=== PATIENT | female | born 1970 | race Caucasian/White ===

== ENCOUNTER 2024-01-16 20:35 | Emergency (ER) | payer BC, SELFPAY ==
[2024-01-16 20:36] VITALS: BP 151/82; PULSE 73; RESP 16; TEMP 36.8; O2SAT 96; BMI 38.7
--- NOTE | 2024-01-16 20:45 | RAD_ITS ---
STUDY: X-RAY - UNILATERAL RIBS ( LEFT ) WITH CHEST REASON FOR EXAM: Female, 53 years old. PAIN TECHNIQUE - RIBS: 4 view(s) of the ribs. TECHNIQUE - CHEST: Single frontal view of the chest. COMPARISON: None. FINDINGS - RIBS: Normal visualized ribs without a demonstrated fracture. FINDINGS - CHEST: Subsegmental atelectasis on the left. The lungs are clear and expanded. There is no demonstrated pleural abnormality. Normal size heart. Normal mediastinum and tricia. Normal visualized pulmonary arteries. Normal visualized aortic arch and descending thoracic aorta. Normal visualized thoracic spine. Normal visualized ribs, clavicles, and shoulders. There is no demonstrated abnormality of the visualized soft tissue structures of the upper abdomen. RAD/Ribs Uni Min 3V w/PA Chest IMPRESSION: RIBS: Subsegmental atelectasis in the left. No pneumothorax. No rib fracture noted. CHEST: Normal x-ray examination of the chest. Electronically Signed: Brandon Sher MD at 22:16 EDT ,
--- NOTE | 2024-01-16 22:17 | EKG12_ITS ---
Test Reason : CHEST OTHER Blood Pressure : / mmHG Vent. Rate : 071 BPM Atrial Rate : 071 BPM P-R Int : 132 ms QRS Dur : 082 ms QT Int : 388 ms P-R-T Axes : 010 021 016 degrees QTc Int : 421 ms Normal sinus rhythm Normal ECG Confirmed by Frank West ([id number]), newspaper managing editor RELL SWANN ([id number]) on 01/19/2024 2:21:34 PM Referred By: GAETANO Confirmed By:Frank West
--- NOTE | 2024-01-16 22:18 | EDS_ITS ---
HPI History of Present Illness Chief Complaint: Chest Other Narrative Narrative: 53-year-old female past medical history of type 2 diabetes on Mounjaro, had recent biopsies of her breasts, presents from urgent care with left-sided chest pain that she has had since 1230 this afternoon, almost 10 hours ago. It has been constant. She denies any nausea or vomiting, no diaphoresis or shortness of breath. She states it is more tender when she presses in 2 spots on her left chest wall. Does not really have a pleuritic component to it. She states she would have to breathe really deep in order to make it hurt. She states she also takes estrogen and progesterone. She states that at the urgent care, they were concerned because of her recent breast biopsies, and had mention risk of blood clots. [facility] Medical History Type 2 diabetes mellitus Allergy/AdvReac Type Severity Reaction Status Date / Time No Known Allergies Allergy Verified 01/16/24 20:40 Surgical History History of cholecystectomy History of surgery on lower extremity Social History Smoking Status: Former smoker ROS ROS ED ROS Narrative Constitutional: No fever, no chills. HEENT: No sore throat. No neck pain. No loss of vision. No rhinorrhea. Cardiovascular: Left-sided chest pain. No palpitations. No pedal edema. Respiratory: No cough, no shortness of breath. Abdominal: No abdominal pain. No nausea. No vomiting. Genitourinary: No dysuria. No hematuria. Musculoskeletal: No myalgias. No arthralgias. Neurologic: No headaches. No dizziness. No lightheadedness. Skin: No rash. No change in color. Psychiatric: No depression. No anxiety. EXAM Physical Exam Narrative Exam Narrative: Afebrile. Vital signs noted. HEENT: Normocephalic. Atraumatic. PERRL, EOMI. Neck soft and supple. No point tenderness or step off. Cardiovascular: Regular rate and rhythm. No murmurs, rubs, or gallops appreciated. Mild tenderness to palpation left chest wall, more anteriorly and slightly posteriorly. No crepitance. Respiratory: No tachypnea. Lungs clear to auscultation bilaterally. Gastrointestinal: Abdomen soft, nontender, with normoactive bowel sounds. No rebound or guarding. Neurological: Awake. Alert. Nonfocal, nonlateralizing. Skin: No rash. Normal color. No pallor. Musculoskeletal: No pedal edema. Full range of motion extremities. Const Vital Signs: 01/16/24 20:36 01/16/24 21:39 01/16/24 22:28 Temperature 98.3 F Temperature Source Temporal Pulse Rate 73 Respiratory Rate 16 Respiratory Effort Normal Non-Labored Blood Pressure 151/82 H Blood Pressure Mean 105 Pulse Ox 96 Oxygen Delivery Method Room Air Room Air 01/16/24 22:35 Temperature Temperature Source Pulse Rate 71 Respiratory Rate 17 Respiratory Effort Blood Pressure 148/77 H Blood Pressure Mean 100 Pulse Ox 96 Oxygen Delivery Method Room Air MDM MDM MDM Narrative Medical decision making narrative: In the differential diagnosis is ACS versus pulmonary embolism versus rib fracture. I have low suspicion for rib fracture because she has not had any trauma. She does have risk for her for pulmonary embolism including her use of estrogen and progesterone. I feel that perhaps urgent care was concerned that s nataliia she had breast biopsies that she may have carcinoma, increasing her risk for pulmonary embolism. She has had constant pain without other symptoms so I have low suspicion for ACS, and I do not feel she needs serial troponins and that 1 troponin could help rule her out. RN ordered x-rays of the chest and ribs which were interpreted by myself independently and I see no evidence of pneumothorax or pneumonia, no fractured rib. I reviewed the radiology report which confirms my independent interpretation. I do feel that she should get basic laboratory work, EKG, and a D-dimer to help rule out pulmonary embolism as well. EKG obtained and interpreted by myself independently as normal sinus rhythm at 71 bpm without ectopy or acute ST changes. No STEMI. I reviewed her laboratory work and she has a normal white count of 10.4, hemoglobin normal at 14.3, hematocrit 43.6, platelet count normal at 370. D-dimer is less than 0.27 so I do not feel she has a pulmonary embolism. Review of her electrolyte panel is grossly unremarkable. Normal BUN and normal creatinine. High-sensitivity troponin is 4. Once again, this is a 6-hour troponin she has had constant pain so I do not feel that she needs a second enzyme. She will take [id number] analgesics and I do not feel narcotics are indicated. She will follow-up with her primary care provider. Return instructions to the emergency department were reviewed. Patient and spouse are agreeable to the plan. Disposition is discharged home in stable condition. History & Record Review Discussion w/independent historian: Patient Additional record(s) reviewed:: No prior records Lab Data Attestation: I reviewed the patient's lab results. Labs: Laboratory Results - last 24 hr 01/16/24 22:25 WBC 10.4 RBC 4.96 Hgb 14.3 Hct 43.6 MCV 87.9 MCH 28.8 MCHC 32.8 RDW Std Deviation 41.3 RDW Coeff of [place]int[place] 12.9 Plt Count 370 MPV 9.9 Immature Gran % (Auto) 0.700 Neut % (Auto) 59.2 Lymph % (Auto) 31.3 [place] % (Auto) 6.5 Eos % (Auto) 1.3 Baso % (Auto) 1.0 Absolute Neuts (auto) 6.2 Absolute Lymphs (auto) 3.25 Nucleated RBC % 0 D-Dimer Quant (PE/DVT) < 0.27 L Sodium 137 Potassium 3.8 Chloride 104 Carbon Dioxide 26.0 Anion Gap 7 BUN 14 Creatinine 0.64 Estim Creat Clear Calc 109.97 Est GFR (MDRD) Af Amer 125 Est GFR (MDRD) Non-Af 103 BUN/Creatinine Ratio 21.9 H Glucose 85 Calcium 9.3 Troponin I High Sens 4 Radiography Diagnostic Testing: Clinical Impression(s) from Imaging Studies Ribs w/Chest X-Ray 01/16/24 20:45 IMPRESSION: RIBS: Subsegmental atelectasis in the left. No pneumothorax. No rib fracture noted. CHEST: Normal x-ray examination of the chest. Electronically Signed: Brandon Sher MD at 22:16 EDT , Discharge Plan Triage Chief Complaint: Chest Other ED Provider: Jarvis Bland Dx/Rx/DC Orders Clinical Impression: Atelectasis, Chest pain Instructions: ED Atelectasis, ED Chest Pain, Uncertain Cause Primary Care Provider: Savage Khan Referrals: Savage Khan MD [Primary Care Provider] - 3-5 Days Activity Restrictions/Additional Instructions: He had negative workup here today. Take Tylenol as needed for pain. Follow-up with your primary care provider early next week. Return with increased pain, new or worsening symptoms. Disposition Disposition: Home, Self Care
[2024-01-16 22:35] VITALS: BP 148/77; PULSE 71; RESP 17; O2SAT 96
[2024-01-16 22:45] LABS: Absolute Lymphocyte Count 3.25 X10^3/uL (0.83-4.51); Absolute Neutrophil Count 6.2 X10^3/uL (2.0-7.7); Eosinophil# 0.13 X10^3/uL; Eosinophils% 1.3 % (0-5); Hematocrit 43.6 % (37-47); Hemoglobin 14.3 g/dL (12.0-15.0); Lymphocyte # 3.25 X10^3/ul (0.83-4.51); Lymphocyte % 31.3 % (19-41); Mean Corp Hgb Conc 32.8 g/dL (32-36); Mean Corpuscular Hgb 28.8 pg (27.0-32.0); Mean Corpuscular Volume 87.9 fL (81-99); Mean Platelet Vol. 9.9 fl (6.2-12.0); Monocyte# 0.67 X10^3/uL; Monocyte% 6.5 % (0-10); NRBC Flagged by Analyzer 0 % (0-5); Neutrophil # 6.15 X10^3/uL (2.7-7.7); Neutrophil % 59.2 % (47-70); Platelet Count 370 K/mm3 (150-450); RBC Distribution Width CV 12.9 % (11.6-14.6); RBC Distribution Width SD 41.3 fl (35.1-43.9); Red Blood Count 4.96 M/mm3 (4.2-5.4); White Blood Count 10.4 K/mm3 (4.4-11.0)
[2024-01-16 23:01] LABS: D-Dimer Quantitative (DVT/PE) < 0.27 FEU/ug/m (0.27-0.49)
[2024-01-16 23:17] LABS: Anion Gap 7 (5-15); BUN 14 mg/dL (7-18); BUN/Creat Ratio 21.9 RATIO (10-20); Calcium,Total 9.3 mg/dL (8.5-10.1); Chloride 104 mmol/L (98-107); Creatinine, Serum 0.64 mg/dL (0.55-1.02); EST Glomerular Filtration Rate 103 mL/min (>60); Est Glom Filt Rate - Afr Amer 125 mL/min (>60); Estimated Creatinine Clearance 109.97 ml/min; Glucose 85 mg/dL (74-106); Potassium 3.8 mmol/L (3.5-5.1); Sodium Level 137 mmol/L (136-145); Troponin-I HS (w/2H Reflex) 4 pg/mL (3.0-54.0)
[2024-01-16 23:50] VITALS: BP 124/72; PULSE 71; RESP 18; TEMP 36.4; O2SAT 94
[2024-01-16] MEDS: Acetaminophen 325 MG Tablet 650 MG PO (23:51)
[2024-01-17 00:30] LABS: Reflex Troponin-HS? (from REC) Y
== END 2024-01-16 23:53 | disposition home or self-care (01) ==
PROVIDERS: Emergency Provider Emergency Medicine; PCP Family Medicine; Visit Provider Emergency Medicine
DX: R07.9 Chest pain, unspecified (principal); E11.9 Type 2 diabetes mellitus without complications; J98.11 Atelectasis; Z87.891 Personal history of nicotine dependence; Z90.49 Acquired absence of other specified parts of digestive tract; Z79.85 Long-term (current) use of injectable non-insulin antidiabetic drugs
CPT/HCPCS: 71101; 80048; 84484; 85025; 85379; 93005; 99284; A4216

== ENCOUNTER 2025-02-10 14:48 | Emergency (ER) | payer BC, SELFPAY ==
[2025-02-10 14:49] VITALS: BP 133/75; PULSE 82; RESP 18; TEMP 36.9; O2SAT 98; BMI 38.5
[2025-02-10 17:54] VITALS: BP 124/75; PULSE 69; RESP 18; O2SAT 96
--- NOTE | 2025-02-10 18:10 | EDS_ITS ---
HPI HPI - GI History of Present Illness Chief Complaint: Constipation Narrative Narrative: 54-year-old female past medical history of type 2 diabetes controlled with diet and exercise is status post partial hysterectomy by Dr. Paul at [facility] on 02/04/2025, approximately 6 days ago. She was told that if she does not have a bowel movement that she needed to come to the emergency department. She states she also had pelvic floor reconstruction surgery. She has been taking MiraLAX, Senokot, Gas-X, and is cutting down on her opiate use. She is nauseated but has not vomited. No fevers or chills, no dysuria or hematuria. She states that she called the GROUP COUNSELOR and urogynecologist, and was told that she needed to come to the emergency department for evaluation since she has not had a bowel movement. She states she has had decreased flatulence as well. Past surgical history prior to this did not include cholecystectomy. [facility] Medical History Pelvic prolapse Type 2 diabetes mellitus Home Medications ?Medication ?Instructions ?Recorded ?Last Taken ?Type atomoxetine 10 mg capsule 10 mg PO 02/10/25 Unknown Hi story ibuprofen 600 mg tablet mg PO 02/10/25 Unknown Histo ry oxycodone-acetaminophen 5 mg-325 1 tab PO Q6H PRN PRN moderate pain 02/10/25 Unknown History mg tablet tirzepatide 7.5 mg/0.5 mL 7.5 mg subcut QWEEK 02/10/25 Unknown History subcutaneous pen injector (Mounjaro) Allergy/AdvReac Type Severity Reaction Status Date / Time No Known Allergies Allergy Verified 02/10/25 14:51 Surgical History History of hysterectomy History of cholecystectomy History of surgery on lower extremity Social History Smoking Status: Former smoker ROS ROS ED ROS Narrative Review of systems positive for constipation, no bowel movement for 6 days. Mild pelvic/abdominal pain status post pelvic floor surgery/partial hysterectomy. Positive nausea but no vomiting. No fevers or chills. No exacerbating or alleviating factors. EXAM Physical Exam Narrative Exam Narrative: Afebrile. Vital signs noted. Nontoxic-appearing. Cardiovascular examination reveals a regular rate and rhythm. Lungs are clear to auscultation bilaterally. Abdomen is soft, nontender without guarding or rebound. Positive bowel sounds. Neurological examination nonfocal, nonlateralizing. Const Vital Signs: 02/10/25 14:49 02/10/25 17:54 02/10/25 19:00 Temperature 98.4 F Temperature Source Oral Pulse Rate 82 69 78 Respiratory Rate 18 18 16 Blood Pressure 133/75 H 124/75 H 136/78 H Blood Pressure Mean 94 91 97 Pulse Ox 98 96 98 Oxygen Delivery Method Room Air Room Air Room Air 02/10/25 21:00 Temperature Temperature Source Pulse Rate 72 Respiratory Rate 18 Blood Pressure 132/74 H Blood Pressure Mean 93 Pulse Ox 98 Oxygen Delivery Method Room Air MDM MDM MDM Narrative Medical decision making narrative: Differential diagnosis includes but not limited to constipation versus ileus versus partial bowel obstruction. Comprehensive workup was pursued. I have low suspicion for pelvic abscess as she is not febrile here and her pain on examination seems appropriate. I do feel CT imaging is indicated. I reviewed her laboratory work and she has slightly elevated white count of 11.4 which I think may be postsurgical. Hemoglobin 14.9 with hematocrit 43.8, platelet count normal at 360. Sodium normal at 137 with potassium 3.9, anion gap 13, glucose 81. ALT is slightly elevated at 51 which I think is nonspecific. Urinalysis shows occult blood of 150 but negative ketones, while there are 25-50 WBCs and 5-10 RBCs are 10-25 squamous epithelial cells and 0 bacteria. I do not feel that antibiotics are indicated. On my review of the CT scan, there is a moderate amount of stool throughout the colon. Feel it is more of a nonobstructive pattern. On repeat examination, patient wanted to take her on ibuprofen to help with her abdominal pain. I do think that she is probably having more gastric motility problems secondary to opiate use. She will be given 30 mg of Toradol intravenously instead of taking her on ibuprofen which was prescribed to her. I reviewed the radiology report of the CT of the abdomen and pelvis which shows no acute process, there is a moderate stool burden. No fecal impaction. I discussed with the patient the utility of digital rectal examination but she declined. Instead she opted for an enema. I did order a soapsuds enema. However I was told by the RN, that the patient declined the soapsuds enema and would like to be discharged home. I feel she can continue her medications that she is taking and perform enemas at home. She will follow-up with her surgeon at [facility]. Return instructions to the emergency department were reviewed. Disposition is discharged home in stable condition. History & Record Review Discussion w/independent historian: Patient Lab Data Attestation: I reviewed the patient's lab results. Labs: Laboratory Results - last 24 hr 02/10/25 18:43 WBC 11.4 H RBC 5.04 Hgb 14.9 Hct 43.8 MCV 86.9 MCH 29.6 MCHC 34.0 RDW Std Deviation 39.7 RDW Coeff of [place]int[place] 12.7 Plt Count 360 MPV 9.6 Immature Gran % (Auto) 1.100 H Neut % (Auto) 62.1 Lymph % (Auto) 22.9 [place] % (Auto) 7.7 Eos % (Auto) 5.3 H Baso % (Auto) 0.9 Absolute Neuts (auto) 7.1 Absolute Lymphs (auto) 2.62 Nucleated RBC % 0 Sodium 137 Potassium 3.9 Chloride 102 Carbon Dioxide 22.1 Anion Gap 13 BUN 14 Creatinine 0.71 Estim Creat Clear Calc 97.57 Est GFR (MDRD) Non-Af 101 BUN/Creatinine Ratio 19.8 Glucose 81 Calcium 9.3 Total Bilirubin 0.61 AST 24 ALT 51 H Alkaline Phosphatase 69 Total Protein 7.6 Albumin 4.3 Globulin 3.3 Albumin/Globulin Ratio 1.3 Urine Color Yellow Urine Clarity Cloudy Urine pH 6.0 Ur Specific [place] 1.020 Urine Protein 30 H Urine Glucose (UA) Normal Urine Ketones Negative Urine Occult Blood 150 H Urine Nitrite Negative Urine Bilirubin Negative Urine Urobilinogen Normal Ur Leukocyte Esterase 500 H Urine RBC 5-10 SEEN Urine WBC 25-50 SEEN Ur Squamous Epith Cells 10-25 SEEN Urine Bacteria 0 SEEN Urine Mucus 0 SEEN Radiography Diagnostic Testing: Clinical Impression(s) from Imaging Studies Abdomen/Pelvis CT 02/10/25 19:47 IMPRESSION: No acute findings in the abdomen and pelvis. Hepatomegaly and diffuse steatosis. Moderate colonic stool. [facility] T[facility] Chief Complaint: Constipation ED Provider: Jarvis Bland Dx/Rx/DC Orders Clinical Impression: Constipation, Postoperative abdominal pain Instructions: Pain Management After Surgery, ED Constipation (Adult) Prescriptions: No Action oxycodone-acetaminophen 5-325 mg tablet 1 tab PO Q6H PRN PRN (Reason: moderate pain) ibuprofen 600 mg tablet PO atomoxetine 10 mg capsule 10 mg PO Mounjaro 7.5 mg/0.5 mL pen injector 7.5 mg subcut QWEEK Primary Care Provider: Savage Khan Referrals: Savage Khan MD [Primary Care Provider] - Activity Restrictions/Additional Instructions: Follow-up with your pelvic floor surgeon at [facility]. Continue your stool softener, and gentle laxatives in the form of MiraLAX. You may need to increase it to more than once a day. Print Language: Upper Sorbian Disposition Disposition: Home, Self Care
[2025-02-10 19:00] VITALS: BP 136/78; PULSE 78; RESP 16; O2SAT 98
[2025-02-10 19:00] LABS: Bacteria 0 SEEN /hpf (None Seen); Mucous, Urine 0 SEEN /hpf (<or=2+)
[2025-02-10 19:03] LABS: Color, Urine Yellow (Yellow); Glucose, Dipstick Normal (Normal); Ketone-Dipstick Negative (Negative); Leukocyte Esterase-Dipstick 500 /ul (Negative); Nitrite-Dipstick Negative (Negative); Occult Blood-Urine 150 /ul (Negative); Protein-Dipstick 30 mg/dl (Negative); Urine Bilirubin Dipstick Negative (Negative); Urine Clarity Cloudy (Clear); Urine Urobilinogen Normal (Normal)
[2025-02-10 19:10] LABS: Absolute Lymphocyte Count 2.62 X10^3/uL (0.83-4.51); Absolute Neutrophil Count 7.1 X10^3/uL (2.0-7.7); Basophil% 0.9 % (0-1); Eosinophils% 5.3 % (0-5); Hematocrit 43.8 % (37-47); Hemoglobin 14.9 g/dL (12.0-15.0); Lymphocyte # 2.62 X10^3/ul (0.83-4.51); Lymphocyte % 22.9 % (19-41); Mean Corpuscular Hgb 29.6 pg (27.0-32.0); Mean Corpuscular Volume 86.9 fL (81-99); Mean Platelet Vol. 9.6 fl (6.2-12.0); Monocyte# 0.88 X10^3/uL; Monocyte% 7.7 % (0-10); NRBC Flagged by Analyzer 0 % (0-5); Neutrophil # 7.09 X10^3/uL (2.7-7.7); Neutrophil % 62.1 % (47-70); Platelet Count 360 K/mm3 (150-450); RBC Distribution Width CV 12.7 % (11.6-14.6); RBC Distribution Width SD 39.7 fl (35.1-43.9); Red Blood Count 5.04 M/mm3 (4.2-5.4); White Blood Count 11.4 K/mm3 (4.4-11.0)
[2025-02-10 19:44] LABS: ALB/GLOB Ratio 1.3 RATIO (0.9-2.4); AST(SGOT) 24 U/L (<=31); Alanine Aminotransfer ALT/SGPT 51 U/L (<=34); Albumin, Serum 4.3 g/dL (3.5-5.0); Alkaline Phosphatase 69 U/L (35-104); Anion Gap 13 (5-15); BUN 14 mg/dL (4-19); BUN/Creat Ratio 19.8 RATIO (10-20); Calcium,Total 9.3 mg/dL (7.6-11.0); Carbon Dioxide 22.1 mmol/L (21.0-32.0); Chloride 102 mmol/L (98-108); Creatinine, Serum 0.71 mg/dL (0.70-1.20); EST Glomerular Filtration Rate 101 (>60); Estimated Creatinine Clearance 97.57 ml/min (50-250); Globulin 3.3 g/dL (2.2-4.2); Glucose 81 mg/dL (70-99); Potassium 3.9 mmol/L (3.3-5.1); Protein, Total 7.6 g/dL (5.9-8.4); Sodium Level 137 mmol/L (133-145); Total Bilirubin 0.61 mg/dL (0.00-1.30)
--- NOTE | 2025-02-10 19:47 | CT_ITS ---
PROCEDURE: ABDOMEN/PELVIS W IV CONT ONLY 02/10/2025 REASON FOR EXAM: PAIN, CONSTIPATION TECHNIQUE: Abdomen and pelvis CT with intravenous contrast. Coronal and Sagittal reconstruction series were provided. PATIENT PREPARATION: Per protocol ORAL CONTRAST TYPE: None. AMOUNT: mL CONTRAST: Omnipaque 350 VOLUME: 100 mL Not Provided Gauge IV One or more dose reduction techniques were used (e.g., Automated exposure control, adjustment of the mA and/or kV according to patient size, use of iterative reconstruction technique. COMPARISON: None FINDINGS: Lung bases: Mild bibasilar atelectasis. Liver: Diffuse steatosis. Hepatomegaly, craniocaudal length 19.4 cm. No focal lesion. Gallbladder: No ductal dilation. Cholecystectomy. Spleen: Normal size. Pancreas: Normal size without evidence of mass surrounding inflammation or ductal dilation. Adrenals: Unremarkable Kidneys: Normal renal sizes. No hydronephrosis. Bladder: Urinary bladder is unremarkable. Reproductive Organs: No pelvic mass. Bowel: Stomach is unremarkable. No bowel dilation or significant wall thickening. Moderate colonic stool. Appendix: The appendix is not identified. There is no inflammatory process identified in the right lower quadrant to suggest appendicitis. Lymph nodes: No suspicious lymph node enlargement. Vasculature: Mild diffuse atherosclerotic calcifications are noted. Peritoneum / Retroperitoneum: No ascites. No pneumoperitoneum. Bones: No suspicious osseous lesions. CT/Abdomen/Pelvis W IV Cont ONLY IMPRESSION: No acute findings in the abdomen and pelvis. Hepatomegaly and diffuse steatosis. Moderate colonic stool. Reading Location: [facility]
[2025-02-10 20:20] LABS: Red Blood Cells-Urine 5-10 SEEN /hpf (0-5); White Blood Cells 25-50 SEEN /hpf (0-5)
[2025-02-10 20:21] LABS: Squamous Epithelial Cells - UA 10-25 SEEN /hpf (5-10)
[2025-02-10 21:00] VITALS: BP 132/74; PULSE 72; RESP 18; O2SAT 98
[2025-02-10] MEDS: Ketorolac 30 MG/ML Syringe IV (21:34)
--- NOTE | 2025-02-10 22:30 | ED.RN ---
Pt declined enema, states she wants to go home and use home enema's. Pt tearful, states her needs to get some sleep. Pt voices understanding on administration of enema and to come back to ED or [facility] with any complications of further concerns. Pt ambulated out of ED.
== END 2025-02-10 22:36 | disposition home or self-care (01) ==
PROVIDERS: Emergency Provider Emergency Medicine; PCP Family Medicine; Visit Provider Emergency Medicine
DX: K59.00 Constipation, unspecified (principal); E11.9 Type 2 diabetes mellitus without complications; R10.9 Unspecified abdominal pain; Z87.891 Personal history of nicotine dependence; G89.18 Other acute postprocedural pain; Z90.710 Acquired absence of both cervix and uterus; Z79.85 Long-term (current) use of injectable non-insulin antidiabetic drugs; Z90.49 Acquired absence of other specified parts of digestive tract
CPT/HCPCS: 74177; 80053; 81001; 85025; 96374; 99283; Q9967; A4216